=== PATIENT | female | born 1955 | race Caucasian/White ===

== ENCOUNTER 2023-02-11 20:59 | Emergency (ER) | payer MEDICARE, OTHER ==
[2023-02-11] MEDS ORDERED: Amiodarone 150 MG/3 ML VIAL ONE (21:01)
[2023-02-11] MEDS ORDERED: Sodium Bicarb 50 MEQ/50 ML Abboject 8.4% SYRINGE ONE (21:01)
[2023-02-11] MEDS ORDERED: EPINEPHrine 1 MG/10 ML Abboject SYRINGE ONE ×2 (21:01→22:00)
[2023-02-11] MEDS ORDERED: Sodium Bicarb 50 MEQ/50 ML VIAL ONE ×4 (21:02→21:40)
[2023-02-11] MEDS ORDERED: Magnesium 2 GM/50 ML BAG (IN WATER) ONE (21:05)
[2023-02-11] MEDS ORDERED: Vasopressin 20 UNITS/ML VIAL ONE (21:25)
[2023-02-11 21:26] LABS: Actual Bicarbonate (HCO3a) 15.5 mEq/L (22-28); Analyzer IN Cardio ER; Base Excess (BEa) -17.4 mEq/L (-2.0 to +3.0); Calcium, Ionized (arterial) 1.13 mmol/L (1.12-1.30); Carboxyhemoglobin (COHb) 0.5 gm% (0.0-3.0); Hematocrit-ABG 25 % (36.0-47.0); Hemoglobin (Hb) 8.4 g/dL (12.0-16.0); O2 Tension (PaO2), arterial 69.6 mmHg (> 80.0); Potassium - ABG Lab 3.15 mmol/L (3.70-5.30)
[2023-02-11 21:58] LABS: Actual Bicarbonate (HCO3v) 28.6 mEq/L (22-28); Analyzer IN Cardio ER; Base Excess -2.3 mEq/L (-2.0 to +3.0); Calcium, Ionized (venous) 0.99 mmol/L (1.16-1.32); Chloride (VBG) 100 mmol/L (98-106); Hematocrit-VBG 21 % (36.0-47.0); Hemoglobin (Hb) 7.3 g/dL (11.7-16.1); Potassium (VBG) 2.89 mmol/L (3.70-5.30); Sodium 148.9 mmol/L (133-146)
[2023-02-11 22:02] LABS: Hemoglobin 7.8 g/dL (12.0-16.0); Mean Corpuscular HGB CONC 29.7 g/dL (32.0-36.0); Mean Corpuscular Hemoglobin 31.3 pg (27.0-31.0); Mean Corpuscular Volume 105.6 fl (78.0-98.0); Mean Platelet Volume 12.8 fL (7.4-10.4); RBC Distribution Width 20.1 % (11.5-14.5); Red Blood Cell (RBC) Count 2.49 mill/uL (4.20-5.40); White Blood Cell (WBC) Count 7.3 10x3/uL (4.8-10.8)
[2023-02-11 22:03] LABS: Delete Auto Diff?? YES; Manual Diff?? YES; Platelet Count 76 10x3/uL (130-400)
[2023-02-11 22:16] LABS: CO2 Tension 85.3 mmHg (35.0-45.0); pH, Arterial 6.876 (7.35-7.45)
[2023-02-11 22:17] LABS: ALV-art Gradient 536.775 mmHg (0-20); Puncture Site Other Site
[2023-02-11 22:19] LABS: pH (venous) 7.051 (7.32-7.43)
[2023-02-11 22:28] LABS: Anisocytosis SLIGHT = 6-15 cells HPF (0-5); Band 7 % (5-11); Burr Cells SLIGHT = 2-5 cells HPF (0-1); CellaVision Operator ID lab.abc; Lymphocytes 30 % (21-51); Macrocytosis SLIGHT = 6-15 cells HPF (0-5); Metamyelocyte 3 % (0-0); Monocytes 14 % (0-10); Myelocyte 3 % (0-0); Neutrophil 43 % (42-75); Nucleated RBC (Manual Ct) 2 % (0); Platelet Adequacy Comment Platelets Decreased; Smudge Cells 38.2 %; Total Cell Count 102
[2023-02-11 22:37] LABS: ALT (SGPT) 88 U/L (8-55); AST (SGOT) 94 U/L (5-34); Albumin 1.9 g/dL (3.4-4.8); Alkaline Phosphatase 92 U/L (40-110); Anion Gap 23 mmol/L (10-20); BUN (Urea Nitrogen) 14 mg/dL (9.8-20.1); Bilirubin, Total Less than 0.2 mg/dL (0.2-1.2); Calc. Creatinine Clearance 0 mL/min (70-130); Calcium 7.3 mg/dL (7.8-10.44); Carbon Dioxide 14 mmol/L (23-31); Chloride 114 mmol/L (98-107); Estimated GFR 51; Globulin 2.3 g/dL (2.4-3.5); Glucose 242 mg/dL (80-115); Potassium 4.2 mmol/L (3.5-5.1); Protein, Total 4.2 g/dL (5.8-8.1); Sodium 147 mmol/L (136-145)
== END 2023-02-11 22:29 | disposition expired ==
LOC: ERS 20:59
DX: I46.9 Cardiac arrest, cause unspecified (principal)
CPT/HCPCS: 31500; 36556; 71045; 80053; 82805; 84484; 85025; 92950; 93005; 94002; J0171; J0282; J3475